=== PATIENT | female | born 1970 | race American Indian/Alaskan Native ===

== ENCOUNTER 2016-10-10 19:09 | Emergency (ER) | payer BC, OTHER ==
[2016-10-10 19:09] VITALS: BMI 32.1
[2016-10-10 19:44] VITALS: BP 133/82; PULSE 98; RESP 20; TEMP 98.5; O2SAT 99
--- NOTE | 2016-10-10 19:45 | ED PDOC ---
Arrival/HPI - General Chief Complaint: Lower Extremity Problem/Injury Time Seen by Provider: 10/10/16 19:35 Historian: Patient - History of Present Illness Narrative History of Present Illness (Text): 10/10/16 19:42 46yo morbidly obese female who present with complaint of severe left knee pain. States pain started this evening when she heard a "snapping sound" while getting out of her car. She denies trauma, previous injury, calf pain, SOB, chest pain, recent travel, any other complaint. 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 - Endocrine/Metabolic Hx Endocrine Disorders: No - Hematological/Oncological Hx Blood Disorders: No - Integumentary Hx Dermatological Disorder: No - Musculoskeletal/Rheumatological Hx Musculoskeletal Disorders: Yes (BACK PAIN) Hx Falls: No - Gastrointestinal Hx Gastrointestinal Disorders: No - Genitourinary/Gynecological Hx Genitourinary Disorders: Yes (ONLY WITH LEFT KIDNEY, 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 ) - Psychiatric Hx Psychophysiologic Disorder: No Hx Substance Use: No - Past Surgical History Past Surgical History: Non-Contributing - Surgical History Hx Section: Yes (last week.) 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) Other/Comment: right nephrectomy (donated to daughter) - Anesthesia Hx Anesthesia: Yes Hx Anesthesia Reactions: No Hx Malignant Hyperthermia: No - Suicidal Assessment Feels Threatened In Home Enviroment: No Family/Social History - Physician Review Nursing Documentation Reviewed: Yes Family/Social History: Unknown Family HX Smoking Status: Never Smoked Hx Alcohol Use: No Hx Substance Use: No Hx Substance Use Treatment: No Allergies/Home Meds Allergies/Adverse Reactions: Allergies No Known Allergies Allergy (Verified 09/28/15 11:09) Home Medications: Home Meds Medication Instructions Recorded Confirmed Carvedilol [Coreg] 12.5 mg PO DAILY 02/03/16 10/10/16 Lisinopril [Zestril] 10 mg PO DAILY 02/03/16 10/10/16 Review of Systems - Physician Review All systems were reviewed & negative as marked: Yes - Review of Systems Constitutional: Normal Eyes: Normal ENT: Normal Respiratory: Normal Cardiovascular: Normal Gastrointestinal: Normal Genitourinary Female: Normal Musculoskeletal: Arthralgias (Left knee pain) Skin: Normal Neurological: Normal Endocrine: Normal Hemo/Lymphatic: Normal Psychiatric: Normal Physical Exam Vital Signs Reviewed: Yes Vital Signs Temp Pulse Resp BP Pulse Ox 10/10/16 19:28 98.5 F 98 H 20 133/82 99 Temperature: Afebrile Blood Pressure: Normal Pulse: Regular Respiratory Rate: Normal Appearance: Positive for: Well-Appearing, Non-Toxic, Comfortable Pain Distress: None Mental Status: Positive for: Alert and Oriented X 3 - Systems Exam Head: Present: Atraumatic, Normocephalic Pupils: Present: PERRL Extroacular Muscles: Present: EOMI Conjunctiva: Present: Normal Mouth: Present: Moist Mucous Membranes Neck: Present: Normal Range of Motion Respiratory/Chest: Present: Clear to Auscultation, Good Air Exchange. No: Respiratory Distress, Accessory Muscle Use Cardiovascular: Present: Regular Rate and Rhythm, Normal S1, S2. No: Murmurs Abdomen: Present: Normal Bowel Sounds. No: Tenderness, Distention, Peritoneal Signs Back: Present: Normal Inspection Upper Extremity: Present: Normal Inspection. No: Cyanosis, Edema Lower Extremity: Present: NORMAL PULSES, Tenderness (OVer the medial and inferior left knee), Neurovascularly Intact. No: Edema, CALF TENDERNESS, Normal ROM (Limited on flexion secondary to pain), Swelling, Erythema, Deformity , Temperature Abnormalties Neurological: Present: GCS=15, CN II-XII Intact, Speech Normal Skin: Present: Warm, Dry, Normal Color. No: Rashes Psychiatric: Present: Alert, Oriented x 3, Normal Insight, Normal Concentration Medical Decision Making ED Course and Treatment: 10/10/16 20:00 Left knee xray - No acute fracture/dislocation noted Knee immobilizer placed. Crutches given Referred to ortho Advised to RICE knee TRT ED for any new or worsening symptoms - RAD Interpretation Radiology Orders: 10/10/16 19:36 KNEE LEFT 2 VIEWS (AP & LAT) [RAD] Stat Disposition/Present on Arrival - Present on Arrival Any Indicators Present on Arrival: No History of DVT/PE: No History of Uncontrolled Diabetes: No Urinary Catheter: No History of Decub. Ulcer: No History Surgical Site Infection Following: None - Disposition Have Diagnosis and Disposition been Completed?: Yes Diagnosis: Knee sprain Disposition: HOME/ ROUTINE Disposition Time: 20:05 Patient Plan: Discharge Condition: STABLE Discharge Instructions (ExitCare): Knee Sprain (ED) Additional Instructions: Rest, Ice, compress and elevate knee Follow up with your Doctor/Orthopedist Return to ED for any new or worsening symptoms Prescriptions: Naproxen [Naprosyn] 500 mg PO BID #20 tab traMADol [Ultram] 50 mg PO TID #9 tab Referrals: Erik Santana DO [Staff Provider] - Follow up with primary
--- NOTE | 2016-10-11 08:50 | RAD ---
PROCEDURE: Left Knee Radiographs. HISTORY: Pain. COMPARISON: None. FINDINGS: BONES: Normal. No fracture. JOINTS: Normal. No osteoarthritis. JOINT EFFUSION: None. OTHER FINDINGS: None. IMPRESSION: Normal radiographs of the left knee.
== END 2016-10-10 20:19 | disposition home or self-care (01) ==
LOC: ED 19:09
DX: S83.92XA Sprain of unspecified site of left knee, initial encounter (principal); X50.0XXA Overexertion from strenuous movement or load, initial encounter; Y93.89 Activity, other specified; Y92.89 Other specified places as the place of occurrence of the external cause
CPT/HCPCS: 73560; 96372; 99283; J1885

== ENCOUNTER 2018-05-25 16:28 | Emergency (ER) | payer SELFPAY ==
[2018-05-25 18:26] VITALS: BMI 348.6
[2018-05-25 18:27] VITALS: PULSE 110; RESP 18; TEMP 98.1; O2SAT 98
[2018-05-25 18:33] VITALS: BP 132/89
[2018-05-25 18:46] LABS: URINE BILIRUBIN NEGATIVE (NEGATIVE); URINE BLOOD NEGATIVE (NEGATIVE); URINE GLUCOSE (UA) >=1000 mg/dL (NEGATIVE); URINE LEUKOCYTE ESTERASE NEGATIVE Leu/uL (NEGATIVE); URINE PROTEIN TRACE mg/dL (<30 mg/dL); URINE UROBILINOGEN 0.2 E.U./dL (<1 E.U./dL)
[2018-05-25 18:47] LABS: URINE APPEARANCE CLEAR (CLEAR); URINE COLOR LIGHT YELLOW (YELLOW)
[2018-05-25] MEDS ORDERED: Sodium Chloride 0.9% 1,000 ML IV SCH (19:30)
--- NOTE | 2018-05-25 19:36 | ED PDOC ---
Arrival/HPI - General Chief Complaint: Female Genitourinary Time Seen by Provider: 05/25/18 18:35 Historian: Patient - History of Present Illness Narrative History of Present Illness (Text): 05/25/18 19:37 48 yo F c/o dysuria, urinary frequency, and vaginal itching x 3 days. Reports no fevers, chills, abdominal pain, N/V/D, back pain, vaginal bleeding, vaginal d/c, hematuria. Past Medical History - Infectious Disease Hx of Infectious Diseases: None - Tetanus Immunization Tetanus Immunization: Unknown - Reproductive Currently : No - Past Medical History Past Medical History: No Previous - Cardiac Hx Cardiac Disorders: Yes Hx Hypertension: Yes - Pulmonary Hx Respiratory Disorders: No - Neurological Hx Neurological Disorder: No - HEENT Hx HEENT Disorder: No - Renal Hx Renal Disorder: No - Endocrine/Metabolic Hx Endocrine Disorders: No - Hematological/Oncological Hx Blood Disorders: No - Integumentary Hx Dermatological Disorder: No - Musculoskeletal/Rheumatological Hx Musculoskeletal Disorders: Yes (BACK PAIN) Hx Back Pain: Yes - Gastrointestinal Hx Gastrointestinal Disorders: No - Genitourinary/Gynecological Hx Genitourinary Disorders: Yes (ONLY WITH LEFT KIDNEY, 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) - Psychiatric Hx Psychophysiologic Disorder: No Hx Substance Use: No - Past Surgical History Past Surgical History: Non-Contributing - Surgical History Hx Section: Yes 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) Other/Comment: right nephrectomy (donated to daughter) - Anesthesia Hx Anesthesia: Yes Hx Anesthesia Reactions: No Hx Malignant Hyperthermia: No - Suicidal Assessment Feels Threatened In Home Enviroment: No Family/Social History Family/Social History: No Known Family HX Smoking Status: Never Smoked Hx Alcohol Use: No Hx Substance Use: No Hx Substance Use Treatment: No Allergies/Home Meds Allergies/Adverse Reactions: Allergies No Known Allergies Allergy (Verified 05/25/18 18:27) Home Medications: Home Meds Medication Instructions Recorded Confirmed Carvedilol [Coreg] 12.5 mg PO BID 02/03/16 05/25/18 Lisinopril [Zestril] 10 mg PO DAILY 02/03/16 05/25/18 Oxycodone HCl/Acetaminophen 1 tab PO TID 05/25/18 05/25/18 [Percocet 10-325 mg Tablet] Review of Systems - Review of Systems Constitutional: absent: Fatigue, Fevers Respiratory: absent: SOB, Cough Cardiovascular: absent: Chest Pain, Palpitations Gastrointestinal: absent: Abdominal Pain, Nausea, Vomiting Genitourinary Female: Dysuria, Frequency, Other (vaginal itching). absent: Hematuria Musculoskeletal: absent: Arthralgias, Back Pain, Neck Pain Skin: absent: Rash, Pruritis, Skin Lesions Physical Exam Vital Signs Temp Pulse Resp BP Pulse Ox 05/25/18 18:26 98.1 F 110 H 18 132/89 98 Temperature: Afebrile Blood Pressure: Normal Pulse: Regular Respiratory Rate: Normal Appearance: Positive for: Well-Appearing, Non-Toxic, Comfortable Pain Distress: None Mental Status: Positive for: Alert and Oriented X 3 Finger Stick Blood Glucose: 397 - Systems Exam Head: Present: Atraumatic, Normocephalic Pupils: Present: PERRL Extroacular Muscles: Present: EOMI Conjunctiva: Present: Normal Mouth: Present: Moist Mucous Membranes Neck: Present: Normal Range of Motion Respiratory/Chest: Present: Clear to Auscultation, Good Air Exchange. No: Respiratory Distress, Accessory Muscle Use Cardiovascular: Present: Regular Rate and Rhythm, Normal S1, S2. No: Murmurs Abdomen: No: Tenderness, Distention, Peritoneal Signs Genitourinary/Pelvic Exam: Present: Other (+erythema to the external genitalia). No: Vaginal Discharge, Vaginal Bleeding Back: Present: Normal Inspection Upper Extremity: Present: Normal Inspection. No: Cyanosis, Edema Lower Extremity: Present: Normal Inspection. No: Edema Neurological: Present: GCS=15, CN II-XII Intact, Speech Normal Skin: Present: Warm, Dry, Normal Color. No: Rashes Psychiatric: Present: Alert, Oriented x 3, Normal Insight, Normal Concentration Medical Decision Making ED Course and Treatment: 05/25/18 19:33 UA ordered. UA +>1000 glucose, (-) evidence of infection. FS 397. Labs, IV, NS bolus ordered. Patient reports no h/o DM, reports that in 2016 she was and had gestational DM during her , states that after she delivered, she went to f/u 2x with her pmd and her labs were normal and told she was fine. Patient does admit that for the past few months she has had polydipsia, polyphagia and polyuria. Labs reviewed glucose 355, AG normal. NS bolus IV ordered. Repeat FS 293. Patient advised that she has DM based on the lab findings and her symptoms. Patient's pmd is Dr. Ervin Maynard, here in [place], patient's pmd called for appropriate disposition. PMD called at 2x at 2145 and 2215, spoke to the service, received no call back. 05/25/18 23:15 Patient refuses to wait for her pmd to call back, states that she wants to leave the ER and that she can see her pmd tomorrow. Patient informed of the reasons for the following and planned treatment, which patient understands, however still refuses. Patient informed of the risk and benefits of treatment. Informed that the risk could include worsening of current conditions, undiagnosed conditions, disability or even . Patient understands the following risk and the benefits of treatment. Patient has the capacity to make decisions and still refuses treatment by RN, PA and ER MD. Patient encouraged to return to the ER at any time and to follow up with pmd. - Lab Interpretations Lab Results: Urine Color Light yellow (YELLOW) 05/25/18 18:30 Urine Appearance Clear (CLEAR) 05/25/18 18:30 Urine pH 6.0 (4.7-8.0) 05/25/18 18:30 Ur Specific Deale 1.020 (1.005-1.035) 05/25/18 18:30 Urine Protein Trace mg/dL (<30 mg/dL) H 05/25/18 18:30 Urine Glucose (UA) >=1000 mg/dL (NEGATIVE) 05/25/18 18:30 Urine Ketones 40 mg/dL (NEGATIVE) H 05/25/18 18:30 Urine Blood Negative (NEGATIVE) 05/25/18 18:30 Urine Nitrate Negative (NEGATIVE) 05/25/18 18:30 Urine Bilirubin Negative (NEGATIVE) 05/25/18 18:30 Urine Urobilinogen 0.2 E.U./dL (<1 E.U./dL) 05/25/18 18:30 Ur Leukocyte Esterase Negative Roverto/uL (NEGATIVE) 05/25/18 18:30 Urine RBC None /hpf (0-2) 05/25/18 18:30 Urine WBC None /hpf (0-6) 05/25/18 18:30 Ur Epithelial Cells None /hpf (0-5) 05/25/18 18:30 - Medication Orders Current Medication Orders: Sodium Chloride (Sodium Chloride 0.9%) 100 mls @ 1,000 mls/hr IV .Q6M KWESI Stop: 05/25/18 19:35 - PA / PICK UP / Resident Statement / has reviewed & agrees with the documentation as recorded. Disposition/Present on Arrival - Present on Arrival Any Indicators Present on Arrival: No History of DVT/PE: No History of Uncontrolled Diabetes: No Urinary Catheter: No History of Decub. Ulcer: No History Surgical Site Infection Following: None - Disposition Have Diagnosis and Disposition been Completed?: Yes Diagnosis: Vaginal candidiasis, Diabetes Disposition: AGAINST MEDICAL ADVICE Disposition Time: 23:15 Patient Plan: Other (Pt wishes to leavea AMA) Condition: STABLE Discharge Instructions (ExitCare): Vulvovaginal Yeast Infection, Type 2 Diabetes, Leaving Against Medical Advice Additional Instructions: Thank you for letting us take care of you today. You were treated for vaginal candidiasis, new onset DM. The emergency medical care you received today was directed at your acute symptoms. If you were prescribed any medication, please fill it and take as directed. It may take several days for your symptoms to resolve. Return to the Emergency Department if your symptoms worsen, do not improve, or if you have any other problems. Please see your doctor tomorrow for re-evaluation and follow up without fail. Bring any paperwork you were given at discharge with you along with any medications you are taking to your follow up visit. Our treatment cannot replace ongoing medical care by a primary care provider (PCP) outside of the emergency department. Thank you for allowing the [email or web address] team to be part of your care today. Prescriptions: Clotrimazole 1% Cream [Lotrimin 1%] 30 applic EXT BID #1 tube Forms: [employer] (Moroccan), WORK NOTE
[2018-05-25] MEDS ORDERED: Sodium Chloride 0.9% 1,000 ML IV STA (19:45)
[2018-05-25 19:47] LABS: BASO # 0.02 K/mm3 (0.0-2.0); BASO % 0.2 % (0.0-3.0); EOS # 0.2 (0.0-0.7); EOS % 2.4 % (1.5-5.0); HEMOGLOBIN 13.6 g/dL (12.0-16.0); LYMPH # 4.4 (1.2-3.4); LYMPH % 50.8 % (22.0-35.0); MEAN CELL VOLUME 86.1 fl (80.0-105.0); MEAN CORPUSCULAR HEMOGLOBIN 29.6 pg (25.0-35.0); MEAN CORPUSCULAR HGB CONC 34.3 g/dl (31.0-37.0); MONO # 0.4 (0.1-0.6); MONO % 4.4 % (1.0-6.0); RBC 4.6 10^6/uL (3.5-6.1); RED CELL DISTRIBUTION WIDTH 12.5 % (11.5-14.5); WHITE BLOOD COUNT 8.6 10^3/uL (4.5-11.0)
[2018-05-25 20:11] LABS: ALB/GLOB RATIO 1.3 (1.1-1.8); ALBUMIN 4.3 g/dL (3.0-4.8); ALT/SGPT 15 U/L (7-56); AST/SGOT 29 U/L (14-36); BLOOD UREA NITROGEN 13 mg/dL (7-21); CALCIUM 9.5 mg/dL (8.4-10.5); GFR NON-AFRICAN AMERICAN > 60; LIPASE 107 U/L (23-300)
== END 2018-05-25 23:30 | disposition left against medical advice (07) ==
LOC: ED 16:28
DX: B37.3 Candidiasis of vulva and vagina (principal); E11.9 Type 2 diabetes mellitus without complications; I10 Essential (primary) hypertension
CPT/HCPCS: 80053; 81001; 81025; 82948; 83690; 85025; 87086; 96360; 99284; J7030

== ENCOUNTER 2018-07-04 08:15 | Emergency (ER) | payer OTHER ==
[2018-07-04 08:16] VITALS: BMI 348.6
[2018-07-04 08:31] VITALS: BP 138/92; PULSE 93; RESP 18; TEMP 98.3; O2SAT 96
--- NOTE | 2018-07-04 08:58 | ED PDOC ---
Arrival/HPI - General Chief Complaint: Cough, Cold, Congestion Time Seen by Provider: 07/04/18 08:20 Historian: Patient - History of Present Illness Narrative History of Present Illness (Text): 07/04/18 08:42 48 year old female, with no significant past medical history, presents to the emergency department complaining of productive cough with whitish phlegm for the past 1.5-2 weeks. Patent states she has been taking over the counter cough medicine with no relief. Patient denies any recent travel. Patient denies any fever, chills, chest pain, shortness of breath, nausea, vomiting, diarrhea, urinary symptoms, back pain, neck pain, headache, dizziness, or any other complaints. PMD: None Time/Duration: Other (1.5-2 weeks) Symptom Onset: Gradual Symptom Course: Unchanged Activities at Onset: Light Context: Home Past Medical History - Provider Review Nursing Documentation Reviewed: Yes - Infectious Disease Hx of Infectious Diseases: None - Tetanus Immunization Tetanus Immunization: Unknown - Past Medical History Past Medical History: No Previous - Cardiac Hx Cardiac Disorders: Yes Hx Hypertension: Yes - Pulmonary Hx Respiratory Disorders: No - Neurological Hx Neurological Disorder: No - HEENT Hx HEENT Disorder: No - Renal Hx Renal Disorder: No - Endocrine/Metabolic Hx Diabetes Mellitus Type 2: Yes - Hematological/Oncological Hx Blood Disorders: No - Integumentary Hx Dermatological Disorder: No - Musculoskeletal/Rheumatological Hx Musculoskeletal Disorders: Yes (BACK PAIN) Hx Back Pain: Yes - Gastrointestinal Hx Gastrointestinal Disorders: No - Genitourinary/Gynecological Hx Genitourinary Disorders: Yes (ONLY WITH LEFT KIDNEY, 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) - Psychiatric Hx Psychophysiologic Disorder: No Hx Substance Use: No - Past Surgical History Past Surgical History: Non-Contributing - Surgical History Hx Section: Yes 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) Other/Comment: right nephrectomy (donated to daughter) - Anesthesia Hx Anesthesia: Yes Hx Anesthesia Reactions: No Hx Malignant Hyperthermia: No - Suicidal Assessment Feels Threatened In Home Enviroment: No Family/Social History - Physician Review Nursing Documentation Reviewed: Yes Family/Social History: No Known Family HX Smoking Status: Never Smoked Hx Alcohol Use: No Hx Substance Use: No Hx Substance Use Treatment: No Allergies/Home Meds Allergies/Adverse Reactions: Allergies No Known Allergies Allergy (Verified 07/04/18 08:29) Home Medications: Home Meds Medication Instructions Recorded Confirmed Carvedilol [Coreg] 12.5 mg PO BID 02/03/16 07/04/18 Lisinopril [Zestril] 10 mg PO DAILY 02/03/16 07/04/18 metFORMIN [glucOPHAGE] 1,500 mg PO DAILY 07/04/18 07/04/18 Review of Systems - Physician Review All systems were reviewed & negative as marked: Yes - Review of Systems Constitutional: absent: Fevers, Other (chills) Respiratory: Cough. absent: SOB Cardiovascular: absent: Chest Pain Gastrointestinal: absent: Diarrhea, Nausea, Vomiting Genitourinary Female: absent: Dysuria, Frequency, Hematuria Musculoskeletal: absent: Back Pain, Neck Pain Neurological: absent: Headache, Dizziness Physical Exam Vital Signs Reviewed: Yes Vital Signs Temp Pulse Resp BP Pulse Ox 07/04/18 08:22 98.3 F 93 H 18 138/92 H 96 Temperature: Afebrile Blood Pressure: Normal Pulse: Regular Respiratory Rate: Normal Appearance: Positive for: Well-Appearing, Non-Toxic, Comfortable Pain Distress: None Mental Status: Positive for: Alert and Oriented X 3 - Systems Exam Head: Present: Atraumatic, Normocephalic Pupils: Present: PERRL Extroacular Muscles: Present: EOMI Conjunctiva: Present: Normal Mouth: Present: Moist Mucous Membranes Neck: Present: Normal Range of Motion Respiratory/Chest: Present: Other (course sounds to the left base). No: Respiratory Distress, Accessory Muscle Use Cardiovascular: Present: Regular Rate and Rhythm, Normal S1, S2. No: Murmurs Abdomen: No: Tenderness, Distention, Peritoneal Signs Back: Present: Normal Inspection Upper Extremity: Present: Normal Inspection. No: Cyanosis, Edema Lower Extremity: Present: Normal Inspection. No: Edema Neurological: Present: GCS=15, CN II-XII Intact, Speech Normal Skin: Present: Warm, Dry, Normal Color. No: Rashes Psychiatric: Present: Alert, Oriented x 3, Normal Insight, Normal Concentration Medical Decision Making ED Course and Treatment: 07/04/18 08:37 Impression: 48 year old female presents complaining of productive cough with whitish phlegm that began 1.5-2 weeks ago Plan: -- Chest X-ray -- Reassess and disposition Progress Notes: 07/04/18 9:40 CXR Impression: As read by me, No active disease. 07/04/18 10:00 On re-evaluation, patient is in no acute distress. I have discussed the results and plan with the patient, who expresses understanding. Patient in agreement with plan to be discharged home. Patient is stable for discharge. Patient was instructed to follow up with physician or return if symptoms worsen or new concerning symptoms arise. - RAD Interpretation Radiology Orders: 07/04/18 08:43 CXR [CHEST TWO VIEWS (PA/LAT)] [RAD] Stat Unhairer: ED Physician - Scribe Statement The provider has reviewed the documentation as recorded by the Scribe Gerry Taylor Provider Scribe Attestation: All medical record entries made by the Scribe were at my direction and personally dictated by me. I have reviewed the chart and agree that the record accurately reflects my personal performance of the history, physical exam, medical decision making, and the department course for this patient. I have also personally directed, reviewed, and agree with the discharge instructions and disposition. Disposition/Present on Arrival - Present on Arrival Any Indicators Present on Arrival: No History of DVT/PE: No History of Uncontrolled Diabetes: No Urinary Catheter: No History of Decub. Ulcer: No History Surgical Site Infection Following: None - Disposition Have Diagnosis and Disposition been Completed?: Yes Diagnosis: Upper respiratory infection Disposition: HOME/ ROUTINE Disposition Time: 09:30 Condition: GOOD Discharge Instructions (ExitCare): Acute Bronchitis, Adult (DC) Additional Instructions: ZULEYKA LOOMIS, thank you for letting us take care of you today. The emergency medical care you received today was directed at your acute symptoms. If you were prescribed any medication, please fill it and take as directed. It may take several days for your symptoms to resolve. Return to the Emergency Department if your symptoms worsen, do not improve, or if you have any other problems. Please contact your doctor or call one of the physicians/clinics you have been referred to that are listed on the Patient Visit Information form that is included in your discharge packet. Bring any paperwork you were given at discharge with you along with any medications you are taking to your follow up visit. Our treatment cannot replace ongoing medical care by a primary care provider outside of the emergency department. Thank you for allowing the [facility] team to be part of your care today. Followup with your primary care doctor at the end of the week for re-evaluation and further management. Prescriptions: levoFLOXacin [Levaquin] 750 mg PO DAILY #5 tab Referrals: Ervin Maynard MD [Primary Care Provider] - Follow up with primary Forms: [employer] (Upper Sorbian)
--- NOTE | 2018-07-04 10:50 | RAD ---
Date of service: 07/04/2018 HISTORY: cough r/o infiltrate COMPARISON: 02/03/2016 TECHNIQUE: Chest PA and lateral views FINDINGS: LUNGS: No active pulmonary disease. PLEURA: No significant pleural effusion identified. No pneumothorax apparent. CARDIOVASCULAR: No aortic atherosclerotic calcification present. Normal cardiac size. No pulmonary vascular congestion. OSSEOUS STRUCTURES: No significant abnormalities. VISUALIZED UPPER ABDOMEN: Normal. OTHER FINDINGS: None. IMPRESSION: No active disease.
== END 2018-07-04 10:06 | disposition home or self-care (01) ==
LOC: ED 08:15
DX: J06.9 Acute upper respiratory infection, unspecified (principal)